=== PATIENT | female | born 1950 | race Two or more races ===

== ENCOUNTER 2022-01-26 12:10 | Emergency (ER) | payer OTHER ==
[~2022-01-26] VITALS: Ht 165.1 cm; Wt 63.5 kg
[2022-01-26 13:45] LABS: Basophils # (auto) 0.2 10 ^3/uL (0-0.2); Basophils % (auto) 0.9 % (0.0-2.0); Eosinophils # (auto) 0.4 10 ^3/uL (0-0.8); Eosinophils % (auto) 1.3 % (0.0-7.0); Hematocrit 32.6 % (36.0-46.0); Hemoglobin 10.7 g/dL (12.2-16.2); Lymphocytes # (auto) 3.2 10 ^3/uL (0.4-5.4); Mean Corpuscular Hemoglobin 27.6 pg (28.0-32.0); Mean Corpuscular Hgb Conc. 32.7 g/dL (32.0-36.0); Mean Corpuscular Volume 84.4 fL (80.0-100.0); Monocytes # (auto) 1.7 10 ^3/uL (0-1.3); Monocytes % (auto) 6.2 % (0.0-12.0); Neutrophils # (auto) 21.4 10 ^3/uL (1.6-8.6); Neutrophils % (auto) 79.6 % (37.0-80.0); Red Blood Cells 3.86 10^6/uL (4.0-5.20); Red Cell Distribution Width 17.9 % (11.8-14.3); White Blood Cell 26.9 10^3/uL (4.4-10.8)
[2022-01-26 13:56] LABS: BUN/Creatinine Ratio 11.2; Calcium 8.7 mg/dL (8.5-10.1); Magnesium 2.1 mg/dL (1.6-2.6); Potassium 4.3 mmol/L (3.5-5.1)
[2022-01-26 13:59] LABS: Bilirubin, Total 0.4 mg/dL (0.2-1.0); Total Protein 7.1 g/dL (6.4-8.2)
[2022-01-26] MEDS ORDERED: PIPERACILLIN-TAZOB 3.375GM 100 ML IV ONE (15:15)
[2022-01-26] MEDS ORDERED: AZITHROMYCIN 500MG/ 250ML 250 ML IV ONE (15:15)
[2022-01-26] MEDS ORDERED: SODIUM CHLORIDE 0.9% 1,000 ML IV ONE (15:30)
[2022-01-26 15:48] LABS: INR 1.19 (0.9-1.15); Partial Thromboplastin Time 31.6 sec (23.6-33.0)
[2022-01-26] MEDS ORDERED: PROMETHAZINE W/CODEINE 5 ML ORAL SYRUP PO ONE (17:15)
[2022-01-26 19:01] VITALS: BP 151/52
== END 2022-01-26 19:45 | disposition short-term general hospital (02) ==
LOC: EDBD 12:10 → ER 12:10
DX: R06.02 Shortness of breath (principal); D64.9 Anemia, unspecified; D72.829 Elevated white blood cell count, unspecified; J85.0 Gangrene and necrosis of lung; Z87.891 Personal history of nicotine dependence; Z20.822 Contact with and (suspected) exposure to COVID-19
CPT/HCPCS: 36415; 71045; 71250; 80053; 83605; 83735; 83880; 84484; 85025; 85379; 85610; 85730; 87040; 87426; 96365; 96366; 96368; 99285; J0456; J2543; 93005

== ENCOUNTER 2022-09-18 10:59 | Emergency (ER) | payer OTHER ==
[~2022-09-18] VITALS: Ht 165.1 cm; Wt 64.0 kg
[2022-09-18] MEDS ORDERED: methylPREDNISolone SOD SUCC 125 MG/2 ML VL IV ONE (11:15)
[2022-09-18 12:08] LABS: Basophils # (auto) 0.1 10 ^3/uL (0-0.2); Eosinophils # (auto) 0.5 10 ^3/uL (0-0.8); Lymphocytes # (auto) 1.7 10 ^3/uL (0.4-5.4); Monocytes # (auto) 0.6 10 ^3/uL (0-1.3); Monocytes % (auto) 4.8 % (0.0-12.0)
[2022-09-18 12:09] LABS: Basophils % (auto) 0.5 % (0.0-2.0); Eosinophils % (auto) 4.7 % (0.0-7.0); Hematocrit 16.8 % (36.0-46.0); Lymphocytes % (auto) 14.6 % (10.0-50.0); Mean Corpuscular Hemoglobin 24.8 pg (28.0-32.0); Mean Corpuscular Hgb Conc. 31.7 g/dL (32.0-36.0); Mean Corpuscular Volume 78.3 fL (80.0-100.0); Neutrophils # (auto) 8.8 10 ^3/uL (1.6-8.6); Neutrophils % (auto) 75.4 % (37.0-80.0); Red Blood Cells 2.15 10^6/uL (4.0-5.20); Red Cell Distribution Width 18.6 % (11.8-14.3); White Blood Cell 11.6 10^3/uL (4.4-10.8)
[2022-09-18 12:34] LABS: Albumin 2.1 g/dL (3.4-5.0); BUN/Creatinine Ratio 10.3; Calcium 8.5 mg/dL (8.5-10.1); Potassium 3.9 mmol/L (3.5-5.1)
[2022-09-18 12:36] LABS: Bilirubin, Total 0.4 mg/dL (0.2-1.0); Total Protein 6.6 g/dL (6.4-8.2)
[2022-09-18 12:38] LABS: Hemoglobin 5.3 g/dL (12.2-16.2)
[2022-09-18 18:22] VITALS: BP 133/55
[2022-09-18 18:37] VITALS: BP 143/65
[2022-09-18 19:05] VITALS: BP 138/56
[2022-09-18 21:31] VITALS: BP 131/58
[2022-09-18 22:35] VITALS: BP 139/58
[2022-09-18 22:55] VITALS: BP 122/56
[2022-09-19 02:02] VITALS: BP 133/59
[2022-09-19 03:18] VITALS: BP 127/55
== END 2022-09-19 03:45 | disposition hospice, inpatient (51) ==
LOC: EDBD 10:59 → ER 11:21
DX: D64.89 Other specified anemias (principal); R53.1 Weakness; A15.0 Tuberculosis of lung; R07.89 Other chest pain; Z90.89 Acquired absence of other organs; Z87.891 Personal history of nicotine dependence; Z20.822 Contact with and (suspected) exposure to COVID-19
CPT/HCPCS: 36415; 36430; 71045; 80053; 83880; 85025; 85379; 86850; 86900; 86901; 86920; 87426; 87804; 93005; 96374; 99285; J2930; J7050; P9016

== ENCOUNTER 2022-11-13 08:46 | Inpatient (IN) | payer OTHER ==
[~2022-11-13] VITALS: Ht 152.4 cm; Wt 70.5 kg
[2022-11-13] MEDS ORDERED: ACCU-CHEK COMFORT CURVE STRIP VI ONE (09:15)
[2022-11-13 09:38] LABS: Basophils # (auto) 0.1 10 ^3/uL (0-0.2); Basophils % (auto) 0.4 % (0.0-2.0); Eosinophils # (auto) 0.1 10 ^3/uL (0-0.8); Eosinophils % (auto) 0.8 % (0.0-7.0); Hematocrit 32.3 % (36.0-46.0); Hemoglobin 10.4 g/dL (12.2-16.2); Lymphocytes # (auto) 1.6 10 ^3/uL (0.4-5.4); Lymphocytes % (auto) 10.3 % (10.0-50.0); Mean Corpuscular Hemoglobin 31.1 pg (28.0-32.0); Mean Corpuscular Hgb Conc. 32.1 g/dL (32.0-36.0); Mean Corpuscular Volume 96.7 fL (80.0-100.0); Monocytes % (auto) 6.7 % (0.0-12.0); Neutrophils # (auto) 12.7 10 ^3/uL (1.6-8.6); Neutrophils % (auto) 81.8 % (37.0-80.0); Red Blood Cells 3.34 10^6/uL (4.0-5.20); White Blood Cell 15.5 10^3/uL (4.4-10.8)
[2022-11-13 09:54] LABS: Albumin 2.9 g/dL (3.4-5.0); Calcium 8.2 mg/dL (8.5-10.1); Potassium 3.9 mmol/L (3.5-5.1)
[2022-11-13 09:59] LABS: Bilirubin, Total 0.3 mg/dL (0.2-1.0); Phosphorus 3.3 mg/dL (2.5-4.90); Total Protein 5.7 g/dL (6.4-8.2)
[2022-11-13 10:14] LABS: BUN/Creatinine Ratio 22.3
[2022-11-13 10:27] LABS: Salicylate < 1.7 mg/dL (2.8-20.0)
[2022-11-13 10:50] LABS: Red Cell Distribution Width 20.4 % (11.8-14.3)
[2022-11-13] MEDS ORDERED: ACETAMINOPHEN 325 MG TAB PO ONE (12:00)
[2022-11-13] MEDS ORDERED: VANCOMYCIN 1GM/250ML 250 ML IV ONE (13:00)
[2022-11-13] MEDS ORDERED: CEFEPIME 1GM/ 50ML 50 ML IV ONE (13:00)
[2022-11-13] MEDS ORDERED: ONDANSETRON HCL 4 MG/2 ML VIAL IV PRN (14:15)
[2022-11-13] MEDS ORDERED: DOCUSATE SOD 100 MG CAP PO PRN (14:15)
[2022-11-13] MEDS ORDERED: LORazepam 2MG/ML-1ML VIAL IV PRN ×3 (14:45→19:00)
[2022-11-13 14:57] LABS: Alcohol, Urine < 3.0 mg/dL (0-10); Amphetamine Screen, Urine NEGATIVE (NEGATIVE); Barbiturate Scree,Urine NEGATIVE (NEGATIVE); Benzodiazephine Screen, Urine POSITIVE (NEGATIVE); Cannabinoid Screen, Urine NEGATIVE (NEGATIVE); Cocaine Screen, Urine NEGATIVE (NEGATIVE); Opiate Scree,Urine NEGATIVE (NEGATIVE); Phencyclidine Screen, Urine NEGATIVE (NEGATIVE)
[2022-11-13 15:17] LABS: Urine Bacteria FEW /hpf (None Seen); Urine Blood 2+ /uL (Negative); Urine WBC 1 /hpf (0 - 5)
[2022-11-13] MEDS: SODIUM CHLORIDE 0.9% 1,000 ML IV SCH (17:01)
[2022-11-13] MEDS ORDERED: POSA1TAB PO (17:35)
[2022-11-13] MEDS ORDERED: PRED20TA2 PO (17:35)
[2022-11-13] MEDS ORDERED: PANT40T PO (17:35)
[2022-11-13] MEDS ORDERED: SULF1SUS10 PO (17:35)
[2022-11-13] MEDS: hydrALAZINE HCL 20 MG/ML VL IV PRN ×2 (17:37→21:39)
[2022-11-13 19:40] LABS: Alcohol, Urine < 3.0 mg/dL (0-10); Amphetamine Screen, Urine NEGATIVE (NEGATIVE); Barbiturate Scree,Urine NEGATIVE (NEGATIVE); Benzodiazephine Screen, Urine POSITIVE (NEGATIVE); Cannabinoid Screen, Urine NEGATIVE (NEGATIVE); Cocaine Screen, Urine NEGATIVE (NEGATIVE); Creatinine, Urine 18 mg/dL (30.0-125.0); Opiate Scree,Urine NEGATIVE (NEGATIVE); Phencyclidine Screen, Urine NEGATIVE (NEGATIVE); Sodium Urine 108 mmol/L (40-220)
[2022-11-13] MEDS: MORPHINE SULFATE INJ 2 MG/ml SYRG IV PRN (20:02)
[2022-11-13] MEDS: HEPARIN SODIUM (PORCINE) 5000 UNITS/ML 1ML VIAL SC SCH (21:44)
[2022-11-13] MEDS: HYDROcodone-ACET 5/325MG TAB PO PRN (22:43)
[2022-11-14] MEDS: SODIUM CHLORIDE 0.9% 1,000 ML IV SCH ×3 (00:15→14:00)
[2022-11-14] MEDS: hydrALAZINE HCL 20 MG/ML VL IV PRN ×3 (03:54→23:12)
[2022-11-14] MEDS: MORPHINE SULFATE INJ 2 MG/ml SYRG IV PRN (05:28)
[2022-11-14 05:44] LABS: Basophils # (auto) 0 10 ^3/uL (0-0.2); Basophils % (auto) 0.5 % (0.0-2.0); Eosinophils # (auto) 0.2 10 ^3/uL (0-0.8); Eosinophils % (auto) 2.4 % (0.0-7.0); Hematocrit 29.8 % (36.0-46.0); Hemoglobin 9.9 g/dL (12.2-16.2); Lymphocytes # (auto) 0.7 10 ^3/uL (0.4-5.4); Lymphocytes % (auto) 8.7 % (10.0-50.0); Mean Corpuscular Hgb Conc. 33.3 g/dL (32.0-36.0); Monocytes # (auto) 0.4 10 ^3/uL (0-1.3); Monocytes % (auto) 5.2 % (0.0-12.0); Neutrophils # (auto) 6.7 10 ^3/uL (1.6-8.6); Neutrophils % (auto) 83.2 % (37.0-80.0); Red Cell Distribution Width 20.4 % (11.8-14.3)
[2022-11-14 06:25] LABS: Albumin 2.4 g/dL (3.4-5.0); BUN/Creatinine Ratio 20.3; Bilirubin, Total 0.6 mg/dL (0.2-1.0); Calcium 7.7 mg/dL (8.5-10.1); Total Protein 4.6 g/dL (6.4-8.2)
[2022-11-14] MEDS: METOPROLOL TARTRATE 50 MG TAB PO SCH ×2 (06:49→10:54)
[2022-11-14] MEDS: PANTOPRAZOLE 40 MG/10 ML VIAL INJ IV SCH (10:00)
[2022-11-14] MEDS: ASPirin 81 mg TAB PO SCH (10:54)
[2022-11-14] MEDS: HEPARIN SODIUM (PORCINE) 5000 UNITS/ML 1ML VIAL SC SCH ×2 (10:55→23:11)
[2022-11-14] MEDS ORDERED: FUROSEMIDE 20 MG/2 ML VIAL IV ONE (11:30)
[2022-11-14 20:25] VITALS: BP 163/70
[2022-11-14 22:00] VITALS: BP 163/70
[2022-11-15 05:00] VITALS: BP 167/66
[2022-11-15 07:03] LABS: Basophils # (auto) 0 10 ^3/uL (0-0.2); Basophils % (auto) 0.2 % (0.0-2.0); Eosinophils # (auto) 0.2 10 ^3/uL (0-0.8); Eosinophils % (auto) 2.7 % (0.0-7.0); Hematocrit 27.4 % (36.0-46.0); Hemoglobin 9.1 g/dL (12.2-16.2); Lymphocytes # (auto) 0.7 10 ^3/uL (0.4-5.4); Lymphocytes % (auto) 9.9 % (10.0-50.0); Mean Corpuscular Hemoglobin 32.4 pg (28.0-32.0); Mean Corpuscular Hgb Conc. 33.3 g/dL (32.0-36.0); Mean Corpuscular Volume 97.2 fL (80.0-100.0); Monocytes # (auto) 0.3 10 ^3/uL (0-1.3); Monocytes % (auto) 4.7 % (0.0-12.0); Neutrophils # (auto) 5.9 10 ^3/uL (1.6-8.6); Neutrophils % (auto) 82.5 % (37.0-80.0); Nucleated Red Blood Cells % 0.1 %; Red Blood Cells 2.82 10^6/uL (4.0-5.20); White Blood Cell 7.1 10^3/uL (4.4-10.8)
[2022-11-15 07:33] LABS: Red Cell Distribution Width 20.2 % (11.8-14.3)
[2022-11-15] MEDS: ASPirin 81 mg TAB PO SCH (09:08)
[2022-11-15] MEDS: METOPROLOL TARTRATE 50 MG TAB PO SCH ×2 (09:10→21:37)
[2022-11-15] MEDS: HEPARIN SODIUM (PORCINE) 5000 UNITS/ML 1ML VIAL SC SCH ×2 (09:11→21:40)
[2022-11-15] MEDS: PANTOPRAZOLE 40 MG/10 ML VIAL INJ IV SCH (09:12)
[2022-11-15 10:00] VITALS: BP_SYST 139; BP_SYST 157; BP_DIAS 69; BP_DIAS 85
[2022-11-15] MEDS: hydrALAZINE HCL 20 MG/ML VL IV PRN ×2 (12:17→19:17)
[2022-11-15] MEDS: SODIUM CHLORIDE 0.9% 1,000 ML IV SCH ×2 (12:21→16:40)
[2022-11-16] MEDS: hydrALAZINE HCL 20 MG/ML VL IV PRN (03:43)
[2022-11-16 05:00] VITALS: BP 164/77
[2022-11-16] MEDS: SODIUM CHLORIDE 0.9% 1,000 ML IV SCH ×2 (05:23→19:20)
[2022-11-16 05:29] LABS: Basophils # (auto) 0 10 ^3/uL (0-0.2); Basophils % (auto) 0.6 % (0.0-2.0); Eosinophils # (auto) 0.3 10 ^3/uL (0-0.8); Eosinophils % (auto) 4.6 % (0.0-7.0); Hemoglobin 9.5 g/dL (12.2-16.2); Lymphocytes # (auto) 0.9 10 ^3/uL (0.4-5.4); Lymphocytes % (auto) 13.3 % (10.0-50.0); Mean Corpuscular Hemoglobin 32.4 pg (28.0-32.0); Mean Corpuscular Hgb Conc. 34.1 g/dL (32.0-36.0); Mean Corpuscular Volume 95.1 fL (80.0-100.0); Monocytes # (auto) 0.5 10 ^3/uL (0-1.3); Monocytes % (auto) 7.4 % (0.0-12.0); Neutrophils # (auto) 4.9 10 ^3/uL (1.6-8.6); Neutrophils % (auto) 74.1 % (37.0-80.0); Red Blood Cells 2.94 10^6/uL (4.0-5.20); White Blood Cell 6.7 10^3/uL (4.4-10.8)
[2022-11-16 05:58] LABS: Red Cell Distribution Width 20.1 % (11.8-14.3)
[2022-11-16] MEDS: PANTOPRAZOLE 40 MG/10 ML VIAL INJ IV SCH (08:25)
[2022-11-16] MEDS: ASPirin 81 mg TAB PO SCH (08:25)
[2022-11-16] MEDS: METOPROLOL TARTRATE 50 MG TAB PO SCH ×2 (08:26→21:10)
[2022-11-16] MEDS: HEPARIN SODIUM (PORCINE) 5000 UNITS/ML 1ML VIAL SC SCH ×2 (08:28→21:11)
[2022-11-16 08:48] VITALS: BP 178/78
[2022-11-16] MEDS ORDERED: amLODIPine BESYLATE 5 MG TAB PO ONE (11:15)
[2022-11-16] MEDS: HYDROcodone-ACET 5/325MG TAB PO PRN (12:47)
[2022-11-16 12:49] VITALS: BP 176/76
[2022-11-16 14:09] VITALS: BP 154/70
[2022-11-16 17:00] VITALS: BP 157/84
[2022-11-16] MEDS: cloNIDine HCL 0.1 MG TAB PO PRN (23:00)
[2022-11-17 05:00] VITALS: BP_SYST 110; BP_SYST 141; BP_DIAS 65; BP_DIAS 73
[2022-11-17 06:00] LABS: Basophils # (auto) 0 10 ^3/uL (0-0.2); Eosinophils # (auto) 0.3 10 ^3/uL (0-0.8); Hemoglobin 7.6 g/dL (12.2-16.2); Lymphocytes # (auto) 0.9 10 ^3/uL (0.4-5.4); Monocytes # (auto) 0.4 10 ^3/uL (0-1.3); Red Cell Distribution Width 19.1 % (11.8-14.3); White Blood Cell 4.2 10^3/uL (4.4-10.8)
[2022-11-17 06:03] LABS: Basophils % (auto) 0.5 % (0.0-2.0); Eosinophils % (auto) 7.1 % (0.0-7.0); Lymphocytes % (auto) 20.5 % (10.0-50.0); Mean Corpuscular Hemoglobin 31.8 pg (28.0-32.0); Mean Corpuscular Hgb Conc. 33.1 g/dL (32.0-36.0); Monocytes % (auto) 9.2 % (0.0-12.0); Neutrophils # (auto) 2.6 10 ^3/uL (1.6-8.6); Neutrophils % (auto) 62.7 % (37.0-80.0); Nucleated Red Blood Cells % 0.1 %
[2022-11-17 08:00] VITALS: BP 138/71
[2022-11-17] MEDS: SODIUM CHLORIDE 0.9% 1,000 ML IV SCH ×2 (08:40→22:00)
[2022-11-17] MEDS: PANTOPRAZOLE 40 MG/10 ML VIAL INJ IV SCH (10:58)
[2022-11-17] MEDS: ASPirin 81 mg TAB PO SCH (10:58)
[2022-11-17] MEDS: METOPROLOL TARTRATE 50 MG TAB PO SCH ×2 (11:00→21:11)
[2022-11-17] MEDS: amLODIPine BESYLATE 5 MG TAB PO SCH (11:00)
[2022-11-17] MEDS: HEPARIN SODIUM (PORCINE) 5000 UNITS/ML 1ML VIAL SC SCH ×2 (11:06→21:12)
[2022-11-17 12:00] VITALS: BP 162/78
[2022-11-17] MEDS: MORPHINE SULFATE INJ 2 MG/ml SYRG IV PRN (12:43)
[2022-11-17 16:00] VITALS: BP 141/68
[2022-11-17 20:00] VITALS: BP 137/70
[2022-11-18 05:00] VITALS: BP 148/72
[2022-11-18 08:00] VITALS: BP 148/72
[2022-11-18] MEDS: ASPirin 81 mg TAB PO SCH (09:58)
[2022-11-18] MEDS: METOPROLOL TARTRATE 50 MG TAB PO SCH ×2 (09:59→22:59)
[2022-11-18] MEDS: amLODIPine BESYLATE 5 MG TAB PO SCH (10:00)
[2022-11-18] MEDS: PANTOPRAZOLE 40 MG/10 ML VIAL INJ IV SCH (10:01)
[2022-11-18] MEDS: HYDROcodone-ACET 5/325MG TAB PO PRN (10:01)
[2022-11-18] MEDS: HEPARIN SODIUM (PORCINE) 5000 UNITS/ML 1ML VIAL SC SCH ×2 (10:15→22:59)
[2022-11-18] MEDS: SODIUM CHLORIDE 0.9% 1,000 ML IV SCH (11:20)
[2022-11-18 11:52] VITALS: BP 140/57
[2022-11-18 16:00] VITALS: BP 133/67
[2022-11-18 22:00] VITALS: BP 152/84
[2022-11-19] MEDS: SODIUM CHLORIDE 0.9% 1,000 ML IV SCH ×2 (04:50→14:24)
[2022-11-19] MEDS: HYDROcodone-ACET 5/325MG TAB PO PRN ×2 (04:58→22:26)
[2022-11-19 05:00] VITALS: BP 147/69
[2022-11-19 07:45] VITALS: BP 140/70
[2022-11-19 08:00] VITALS: BP 140/70
[2022-11-19] MEDS: ASPirin 81 mg TAB PO SCH (09:23)
[2022-11-19] MEDS: METOPROLOL TARTRATE 50 MG TAB PO SCH ×2 (09:26→22:25)
[2022-11-19] MEDS: amLODIPine BESYLATE 5 MG TAB PO SCH (09:26)
[2022-11-19] MEDS: PANTOPRAZOLE 40 MG/10 ML VIAL INJ IV SCH (09:29)
[2022-11-19] MEDS: HEPARIN SODIUM (PORCINE) 5000 UNITS/ML 1ML VIAL SC SCH ×2 (09:33→22:27)
[2022-11-19 12:01] VITALS: BP 148/81
[2022-11-19] MEDS: MORPHINE SULFATE INJ 2 MG/ml SYRG IV PRN (12:39)
[2022-11-19 16:00] VITALS: BP 147/71
[2022-11-19 22:00] VITALS: BP 152/69
[2022-11-20 05:00] VITALS: BP 139/72
[2022-11-20] MEDS: SODIUM CHLORIDE 0.9% 1,000 ML IV SCH ×2 (06:18→22:45)
[2022-11-20 07:30] VITALS: BP 166/73
[2022-11-20] MEDS: HYDROcodone-ACET 5/325MG TAB PO PRN (08:01)
[2022-11-20] MEDS: hydrALAZINE HCL 20 MG/ML VL IV PRN (08:31)
[2022-11-20 09:00] VITALS: BP 159/64
[2022-11-20] MEDS: PANTOPRAZOLE 40 MG/10 ML VIAL INJ IV SCH (10:01)
[2022-11-20] MEDS: ASPirin 81 mg TAB PO SCH (10:02)
[2022-11-20] MEDS: amLODIPine BESYLATE 5 MG TAB PO SCH (10:04)
[2022-11-20] MEDS: METOPROLOL TARTRATE 50 MG TAB PO SCH ×2 (10:06→21:28)
[2022-11-20] MEDS: HEPARIN SODIUM (PORCINE) 5000 UNITS/ML 1ML VIAL SC SCH ×2 (10:10→21:35)
[2022-11-20 12:45] VITALS: BP 151/64
[2022-11-20 17:00] VITALS: BP 148/64
[2022-11-20] MEDS: cloNIDine HCL 0.1 MG TAB PO PRN (21:31)
[2022-11-20 22:00] VITALS: BP 163/65
[2022-11-21] MEDS: MORPHINE SULFATE INJ 2 MG/ml SYRG IV PRN (08:15)
[2022-11-21] MEDS: METOPROLOL TARTRATE 50 MG TAB PO SCH (08:53)
[2022-11-21] MEDS: ASPirin 81 mg TAB PO SCH (08:53)
[2022-11-21] MEDS: amLODIPine BESYLATE 5 MG TAB PO SCH (08:53)
[2022-11-21] MEDS: PANTOPRAZOLE 40 MG/10 ML VIAL INJ IV SCH (08:54)
[2022-11-21 09:00] VITALS: BP 143/63
[2022-11-21] MEDS ORDERED: AMLO-496 PO (09:40)
[2022-11-21] MEDS ORDERED: METO-158 PO (09:40)
[2022-11-21] MEDS: HEPARIN SODIUM (PORCINE) 5000 UNITS/ML 1ML VIAL SC SCH (09:44)
[2022-11-21 12:40] VITALS: BP 135/61
[2022-11-21 13:00] VITALS: BP 141/61
== END 2022-11-21 14:40 | DRG 100 ==
LOC: ER 08:46 → EDBD 08:46 → TELE 14:24 → TELE-EAST 11-14 19:58
PROVIDERS: ADMIT Nurse Practitioner Family; ATTEND Family Medicine
PROC: 4A00X4Z Measurement of Central Nervous Electrical Activity, External Approach (ICD-10-PCS; principal; 2022-11-15)
PROC: 4A00X4Z Measurement of Central Nervous Electrical Activity, External Approach (ICD-10-PCS; 2022-11-16)
DX: G40.401 Other generalized epilepsy and epileptic syndromes, not intractable, with status epilepticus (principal); I21.4 Non-ST elevation (NSTEMI) myocardial infarction; I67.83 Posterior reversible encephalopathy syndrome; E44.1 Mild protein-calorie malnutrition; N17.9 Acute kidney failure, unspecified; J96.11 Chronic respiratory failure with hypoxia; D63.8 Anemia in other chronic diseases classified elsewhere; I12.9 Hypertensive chronic kidney disease with stage 1 through stage 4 chronic kidney disease, or unspecified chronic kidney disease; N18.9 Chronic kidney disease, unspecified; N39.44 Nocturnal enuresis; R91.8 Other nonspecific abnormal finding of lung field; Z20.822 Contact with and (suspected) exposure to COVID-19; J43.9 Emphysema, unspecified; L40.50 Arthropathic psoriasis, unspecified; M06.9 Rheumatoid arthritis, unspecified; Z79.2 Long term (current) use of antibiotics; Z68.30 Body mass index [BMI] 30.0-30.9, adult
CPT/HCPCS: 36415; 70450; 70551; 71045; 71250; 80053; 80307; 80329; 81001; 82570; 83735; 83880; 84100; 84300; 84484; 85025; 87426; 93005; 93306; 95819; 96365; 96367; 97110; 97116; 97163; 97530; 99291; C9113; G0378; J7060